=== PATIENT | female | born 1940 | race Caucasian/White ===

== ENCOUNTER 2022-10-19 19:28 | Inpatient (IN) | payer OTHER ==
[~2022-10-19 19:28] MED LIST changes: -METO50ER PO; -Prinivil10 MG PO; -Vitamin D1000 UNI1 PO; -XARELTO20 MG PO
[2022-10-19] MEDS ORDERED: Vitamin D1000 UNI1 PO (22:24)
[2022-10-19] MEDS ORDERED: METO50ER PO (22:25)
[2022-10-19] MEDS ORDERED: Prinivil10 MG PO (22:25)
[2022-10-19] MEDS ORDERED: XARELTO20 MG PO (22:26)
[2022-10-27] MEDS ORDERED: ALBU2.5V5 INH (11:26)
[2022-10-27] MEDS ORDERED: DIGOX125 MC1 PO (11:26)
[2022-10-27] MEDS ORDERED: ALBU8HFA2 INH (11:27)
[2022-10-27] MEDS ORDERED: FLUTICASONE-SA1 EAC2 INH (11:28)
[2022-10-27] MEDS ORDERED: Prednisone10 MG PO (11:29)
== END 2022-10-27 14:04 | disposition home health service (06) | DRG 871 ==
DX: A41.9 Sepsis, unspecified organism (principal); E43 Unspecified severe protein-calorie malnutrition; I21.A1 Myocardial infarction type 2; J96.01 Acute respiratory failure with hypoxia; J18.9 Pneumonia, unspecified organism; J44.1 Chronic obstructive pulmonary disease with (acute) exacerbation; N17.9 Acute kidney failure, unspecified; J44.0 Chronic obstructive pulmonary disease with (acute) lower respiratory infection; I48.20 Chronic atrial fibrillation, unspecified; Z68.1 Body mass index [BMI] 19.9 or less, adult; I44.7 Left bundle-branch block, unspecified; R73.9 Hyperglycemia, unspecified; N18.30 Chronic kidney disease, stage 3 unspecified; I12.9 Hypertensive chronic kidney disease with stage 1 through stage 4 chronic kidney disease, or unspecified chronic kidney disease; D63.1 Anemia in chronic kidney disease; I27.20 Pulmonary hypertension, unspecified; E78.5 Hyperlipidemia, unspecified; R65.20 Severe sepsis without septic shock; Z95.4 Presence of other heart-valve replacement; Z79.01 Long term (current) use of anticoagulants; Z79.82 Long term (current) use of aspirin; Z79.899 Other long term (current) drug therapy

== ENCOUNTER → 2022-10-19 | Outpatient (CLI) | payer OTHER ==
[~2022-10-19] MED LIST: ACET500 PO; ASPI81EC PO; DOCU100 PO; METO25ER PO; METO50ER PO; MOM PO; MULVITMINF PO; OXYC5 PO; Prinivil10 MG PO; SIMV20 PO; Vitamin D1000 UNI1 PO; XARELTO20 MG PO
[2022-10-19 18:40] LABS: BASOPHILS ABSOLUTE AUTO 0.05 K/mm3 (0.00-0.23); BASOPHILS PERCENT AUTO 1 % (0-2); EOSINOPHILS ABSOLUTE AUTO 0.07 K/mm3 (0.00-0.68); EOSINOPHILS PERCENT AUTO 1 % (0-6); Hematocrit 38.6 % (33.0-51.0); Hemoglobin 12.4 g/dL (11.5-16.0); IMMATURE GRAN ABSOLUTE AUTO 0.04 K/mm3 (0.00-0.10); IMMATURE GRAN PERCENT AUTO 0 % (0-1); LYMPHOCYTES ABSOLUTE AUTO 1.14 K/mm3 (0.84-5.20); LYMPHOCYTES PERCENT AUTO 11 % (21-46); MONOCYTES ABSOLUTE AUTO 0.61 K/mm3 (0.16-1.47); MONOCYTES PERCENT AUTO 6 % (4-13); Mean Corpuscular HGB 30.9 pg (26.0-34.0); Mean Corpuscular HGB Conc 32.1 g/dL (31.5-36.5); Mean Corpuscular Volume 96 fL (80-100); Mean Platelet Volume 10.9 fL (9.1-12.4); NEUTROPHILS ABSOLUTE AUTO 8.66 K/mm3 (1.96-9.15); NEUTROPHILS PERCENT AUTO 82 % (41-73); Platelet Count 211 K/mm3 (150-400); RDW Coefficient Variation 12.6 % (11.7-14.2); RDW Standard Deviation 44.6 fL (35.1-46.3); Red Blood Cell Count 4.01 M/mm3 (3.80-5.20); White Blood Cell Count 10.57 K/mm3 (4.00-11.30)
[2022-10-19 18:43] LABS: Bun/Creatinine Ratio 44.1 (12.0-20.0); Calcium, Blood 9.6 mg/dL (8.5-10.1); Creatinine, Blood 1.27 mg/dL (0.40-1.00); Potassium, Blood 4.6 mmol/L (3.5-5.5)
== END | disposition home or self-care (01) ==
LOC: LAB SHORT 18:34
PROVIDERS: Physician Assistant
DX: R09.02 Hypoxemia (principal)
CPT/HCPCS: 80048; 84484; 85025

== ENCOUNTER → 2022-11-09 | Outpatient (CLI) | payer OTHER ==
[~2022-11-09] MED LIST changes: +ALBU2.5V5 INH; +ALBU8HFA2 INH; +DIGOX125 MC1 PO; +FLUTICASONE-SA1 EAC2 INH; +METO100ER PO; +METO50ER PO; +Prednisone10 MG PO; +Prinivil10 MG PO; +Vitamin D1000 UNI1 PO; +XARELTO20 MG PO
[2022-11-09 17:39] LABS: Bun/Creatinine Ratio 26.6 (12.0-20.0); Calcium, Blood 8.9 mg/dL (8.5-10.1); Creatinine, Blood 0.79 mg/dL (0.40-1.00); Potassium, Blood 3.8 mmol/L (3.5-5.5)
== END | disposition home or self-care (01) ==
LOC: LAB SHORT 14:39 → LAB 14:39
PROVIDERS: Internal Medicine
DX: I10 Essential (primary) hypertension (principal)
CPT/HCPCS: 80048

== ENCOUNTER → 2022-11-22 | Outpatient (CLI) | payer OTHER ==
[2022-11-22 16:04] LABS: Bun/Creatinine Ratio 30.4 (12.0-20.0); Calcium, Blood 9.1 mg/dL (8.5-10.1); Creatinine, Blood 0.72 mg/dL (0.40-1.00); Potassium, Blood 3.5 mmol/L (3.5-5.5)
== END | disposition home or self-care (01) ==
LOC: LAB HH 14:23
PROVIDERS: Internal Medicine
DX: I10 Essential (primary) hypertension (principal)
CPT/HCPCS: 80048

== ENCOUNTER 2023-02-21 23:54 | Inpatient (IN) | payer OTHER ==
[~2023-02-21] VITALS: Ht 149.9 cm; Wt 42.3 kg
[2023-02-22 00:34] LABS: BASOPHILS ABSOLUTE AUTO 0.06 K/mm3 (0.00-0.23); BASOPHILS PERCENT AUTO 1 % (0-2); EOSINOPHILS ABSOLUTE AUTO 0.14 K/mm3 (0.00-0.68); EOSINOPHILS PERCENT AUTO 1 % (0-6); Hematocrit 30.4 % (33.0-51.0); Hemoglobin 9.2 g/dL (11.5-16.0); IMMATURE GRAN ABSOLUTE AUTO 0.03 K/mm3 (0.00-0.10); IMMATURE GRAN PERCENT AUTO 0 % (0-1); LYMPHOCYTES ABSOLUTE AUTO 1.26 K/mm3 (0.84-5.20); LYMPHOCYTES PERCENT AUTO 12 % (21-46); MONOCYTES ABSOLUTE AUTO 1.17 K/mm3 (0.16-1.47); MONOCYTES PERCENT AUTO 11 % (4-13); Mean Corpuscular HGB Conc 30.3 g/dL (31.5-36.5); Mean Corpuscular Volume 93 fL (80-100); Mean Platelet Volume 10.6 fL (9.1-12.4); NEUTROPHILS ABSOLUTE AUTO 7.68 K/mm3 (1.96-9.15); NEUTROPHILS PERCENT AUTO 74 % (41-73); Platelet Count 289 K/mm3 (150-400); RDW Coefficient Variation 15.9 % (11.7-14.2); RDW Standard Deviation 53.4 fL (35.1-46.3); Red Blood Cell Count 3.28 M/mm3 (3.80-5.20); White Blood Cell Count 10.34 K/mm3 (4.00-11.30)
[2023-02-22 01:05] LABS: Albumin, Blood 3.7 g/dL (3.4-5.0); Albumin/Globulin Ratio 1.2 (0.8-1.8); Calcium, Blood 8.9 mg/dL (8.5-10.1); Globulin, Blood 3.1 g/dL (2.2-4.0); Potassium, Blood 3.8 mmol/L (3.5-5.5); Total Protein, Blood 6.8 g/dL (6.4-8.2)
[2023-02-22 01:23] LABS: Influenza A, PCR NEGATIVE (NEGATIVE); Influenza B, PCR NEGATIVE (NEGATIVE); Resp Syncytial Virus, PCR NEGATIVE (NEGATIVE); SARS-Cov-2 (COVID-19) PCR, MMC NEGATIVE (NEGATIVE)
[2023-02-22] MEDS ORDERED: DIGOX125 MC1 PO (02:57)
[2023-02-22] MEDS ORDERED: FUROSEMIDE40 MG PO (02:58)
[2023-02-22] MEDS ORDERED: METO50ER PO (02:59)
[2023-02-22] MEDS ORDERED: KLOR-CON 1010 ME1 PO (03:00)
[2023-02-22] MEDS ORDERED: XARELTO10 M1 PO (03:01)
[2023-02-22 05:11] LABS: BASOPHILS ABSOLUTE AUTO 0.03 K/mm3 (0.00-0.23); BASOPHILS PERCENT AUTO 0 % (0-2); EOSINOPHILS ABSOLUTE AUTO 0.01 K/mm3 (0.00-0.68); EOSINOPHILS PERCENT AUTO 0 % (0-6); Hematocrit 28.7 % (33.0-51.0); Hemoglobin 8.7 g/dL (11.5-16.0); IMMATURE GRAN ABSOLUTE AUTO 0.03 K/mm3 (0.00-0.10); IMMATURE GRAN PERCENT AUTO 0 % (0-1); LYMPHOCYTES ABSOLUTE AUTO 0.19 K/mm3 (0.84-5.20); LYMPHOCYTES PERCENT AUTO 3 % (21-46); MONOCYTES ABSOLUTE AUTO 0.13 K/mm3 (0.16-1.47); MONOCYTES PERCENT AUTO 2 % (4-13); Mean Corpuscular HGB 28.2 pg (26.0-34.0); Mean Corpuscular HGB Conc 30.3 g/dL (31.5-36.5); Mean Corpuscular Volume 93 fL (80-100); Mean Platelet Volume 10.6 fL (9.1-12.4); NEUTROPHILS ABSOLUTE AUTO 7.07 K/mm3 (1.96-9.15); NEUTROPHILS PERCENT AUTO 95 % (41-73); Platelet Count 247 K/mm3 (150-400); RDW Coefficient Variation 15.9 % (11.7-14.2); RDW Standard Deviation 53.9 fL (35.1-46.3); Red Blood Cell Count 3.09 M/mm3 (3.80-5.20); White Blood Cell Count 7.46 K/mm3 (4.00-11.30)
[2023-02-22 05:37] LABS: Bun/Creatinine Ratio 54.8 (12.0-20.0); Calcium, Blood 8.7 mg/dL (8.5-10.1); Creatinine, Blood 0.93 mg/dL (0.40-1.00); Potassium, Blood 4.2 mmol/L (3.5-5.5)
--- NOTE | 2023-02-22 06:34 | NUR ---
SHIFT SUMMARY PT ADMITTED AT 0415- REPORT FROM ED RN- PT BROUGHT VIA GURNEY- PT ABLE TO TRANSFER TO BED- PT HAS INCREASED DYSPNEA WITH EXERTION- [place] [facility] [place]- PT TOLERATED WELL- DAUGHTER ASSISTED WITH ANSWERING ADMISSION ASSESSEMENT TO DECREASE PT'S EPISODES OF DYSPNEA- PT ABLE TO ANSWER QUESTIONS APPROPRIATELY -
--- NOTE | 2023-02-22 10:39 | NUR ---
Spiritual Care Visit. Pt. is awake and sitting up in bed when she welcomes my visit. Pt. is pleasant but is hard of hearing. Faciltate a short life review and listen with empathy. Considered matters of jani and yazdanism, and rapport is established. Pt. displayed evidence of a lightened spirit. Prayed with Pt. Pt. verbalized gratitude for the spiritual care visit.
--- NOTE | 2023-02-22 16:57 | NUR ---
DAYSHIFT SUMMARY No acute changes to patient status. Patient alert & oriented x3. Saturations stable on 2lpm, denies difficulty breathing. Ambulating well with FWW, no SOB with activity observed. ECHO done today, results pending. Vitals stable. IV ABX and Lasix given today. Will continue plan of care.
[2023-02-23 05:07] LABS: Hematocrit 27.3 % (33.0-51.0); Hemoglobin 8.2 g/dL (11.5-16.0); Mean Corpuscular Volume 93 fL (80-100); Mean Platelet Volume 10.4 fL (9.1-12.4); Platelet Count 234 K/mm3 (150-400); RDW Coefficient Variation 15.9 % (11.7-14.2); Red Blood Cell Count 2.93 M/mm3 (3.80-5.20)
[2023-02-23 06:02] LABS: Alanine Aminotransfer (ALT/SGP 24 U/L (12-78); Albumin, Blood 3.2 g/dL (3.4-5.0); Albumin/Globulin Ratio 1.1 (0.8-1.8); Alk Phos 65 U/L (50-136); Anion Gap 5 mmol/L (6-16); Aspartate Aminotrans (AST/SGOT 37 U/L (12-37); Bilirubin, Total 0.5 mg/dL (0.1-1.0); Blood Urea Nitrogen 59 mg/dL (8-24); Bun/Creatinine Ratio 57.8 (12.0-20.0); CO2, Blood 34 mmol/L (21-32); Calcium, Blood 8.8 mg/dL (8.5-10.1); Chloride, Blood 100 mmol/L (98-108); Creatinine, Blood 1.02 mg/dL (0.40-1.00); Globulin, Blood 2.8 g/dL (2.2-4.0); Glomerular Filtration Rate 54 (60-); Glucose, Blood 108 mg/dL (70-99); Sodium, Blood 139 mmol/L (136-145)
--- NOTE | 2023-02-23 16:46 | NUR ---
DAYSHIFT SUMMARY Vitals this morning was BP 91/60, Metoprolol & IV Lasix held per order parameters. Patient doing well, denies SOB. Oxygen saturations stable on 0.5L oxygen. Ambulating w/ FWW, staff supervision. No SOB with activity. Possible discharge tomorrow after Home O2 eval. IV Rocephin & Azithromycin given today. Vitals stable. Will continue plan of care.
[2023-02-24 04:47] LABS: BASOPHILS ABSOLUTE AUTO 0.05 K/mm3 (0.00-0.23); BASOPHILS PERCENT AUTO 1 % (0-2); EOSINOPHILS ABSOLUTE AUTO 0.11 K/mm3 (0.00-0.68); EOSINOPHILS PERCENT AUTO 1 % (0-6); Hemoglobin 8.8 g/dL (11.5-16.0); IMMATURE GRAN ABSOLUTE AUTO 0.05 K/mm3 (0.00-0.10); IMMATURE GRAN PERCENT AUTO 1 % (0-1); LYMPHOCYTES PERCENT AUTO 16 % (21-46); MONOCYTES ABSOLUTE AUTO 0.86 K/mm3 (0.16-1.47); MONOCYTES PERCENT AUTO 10 % (4-13); Mean Corpuscular HGB 28.3 pg (26.0-34.0); Mean Corpuscular HGB Conc 30.3 g/dL (31.5-36.5); Mean Corpuscular Volume 93 fL (80-100); Mean Platelet Volume 10.4 fL (9.1-12.4); NEUTROPHILS ABSOLUTE AUTO 6.06 K/mm3 (1.96-9.15); NEUTROPHILS PERCENT AUTO 71 % (41-73); Platelet Count 231 K/mm3 (150-400); RDW Coefficient Variation 15.8 % (11.7-14.2); RDW Standard Deviation 53.3 fL (35.1-46.3); Red Blood Cell Count 3.11 M/mm3 (3.80-5.20); White Blood Cell Count 8.53 K/mm3 (4.00-11.30)
[2023-02-24 06:03] LABS: Albumin, Blood 3.2 g/dL (3.4-5.0); Anion Gap 5 mmol/L (6-16); Blood Urea Nitrogen 71 mg/dL (8-24); Bun/Creatinine Ratio 74.2 (12.0-20.0); CO2, Blood 32 mmol/L (21-32); Calcium, Blood 8.6 mg/dL (8.5-10.1); Chloride, Blood 99 mmol/L (98-108); Creatinine, Blood 0.96 mg/dL (0.40-1.00); Ferritin, Serum 34 ng/mL (8-252); Glomerular Filtration Rate 58 (60-); Glucose, Blood 123 mg/dL (70-99); Iron Serum 27 ug/dL (50-170); Percent Saturation 6.8 % (15.0-50.0); Potassium, Blood 4.7 mmol/L (3.5-5.5); Sodium, Blood 136 mmol/L (136-145); Total Iron Binding Capacity 400 ug/dL (250-450)
--- NOTE | 2023-02-24 17:56 | NUR ---
DAYSHIFT SUMMARY Patient appears more SOB today, requiring 2L oxygen to maintain sats. Plan is to do thorecentesis tomorrow, holding Xarelto tonight. Infed 1000mg administred today. Vitals stable, BP WNL, Metoprolol & IV Lasix administred. No other concerns at this time. Will continue plan of care.
[2023-02-25 05:52] LABS: BASOPHILS ABSOLUTE AUTO 0.04 K/mm3 (0.00-0.23); BASOPHILS PERCENT AUTO 1 % (0-2); EOSINOPHILS ABSOLUTE AUTO 0.09 K/mm3 (0.00-0.68); EOSINOPHILS PERCENT AUTO 1 % (0-6); Hemoglobin 8.4 g/dL (11.5-16.0); IMMATURE GRAN ABSOLUTE AUTO 0.04 K/mm3 (0.00-0.10); IMMATURE GRAN PERCENT AUTO 1 % (0-1); LYMPHOCYTES PERCENT AUTO 17 % (21-46); MONOCYTES ABSOLUTE AUTO 0.97 K/mm3 (0.16-1.47); MONOCYTES PERCENT AUTO 13 % (4-13); Mean Corpuscular HGB 28.1 pg (26.0-34.0); Mean Corpuscular Volume 94 fL (80-100); Mean Platelet Volume 11.2 fL (9.1-12.4); NEUTROPHILS ABSOLUTE AUTO 5.34 K/mm3 (1.96-9.15); NEUTROPHILS PERCENT AUTO 69 % (41-73); Platelet Count 215 K/mm3 (150-400); RDW Coefficient Variation 15.4 % (11.7-14.2); Red Blood Cell Count 2.99 M/mm3 (3.80-5.20); White Blood Cell Count 7.78 K/mm3 (4.00-11.30)
[2023-02-25 06:17] LABS: Albumin, Blood 3.1 g/dL (3.4-5.0); Anion Gap 3 mmol/L (6-16); Blood Urea Nitrogen 56 mg/dL (8-24); Bun/Creatinine Ratio 76.4 (12.0-20.0); CO2, Blood 33 mmol/L (21-32); Calcium, Blood 8.6 mg/dL (8.5-10.1); Chloride, Blood 99 mmol/L (98-108); Creatinine, Blood 0.73 mg/dL (0.40-1.00); Glomerular Filtration Rate 81 (60-); Glucose, Blood 123 mg/dL (70-99); Lactate Dehydrogenase (Ld),Bld 482 U/L (100-240); Phosphorus, Blood 3.4 mg/dL (2.5-4.9); Sodium, Blood 135 mmol/L (136-145)
[2023-02-25 08:34] LABS: International Normalized Ratio 1.23; Prothrombin Time Results 12.7 Sec (9.7-11.5)
[2023-02-25 15:32] LABS: Automated BF RBC Count 0.004 M/mm3 (0-0); Automated BF WBC Count 0.375 K/mm3 (0-999)
[2023-02-25 15:35] LABS: Body Fluid WBC Count 375 /mm3 (0-999); RBC Count, Body Fluid 4000 /mm3 (0-0)
[2023-02-25 15:52] LABS: Albumin, Body Fluid 0.7 g/dL; Glucose, Body Fluid 131 mg/dL; Lactate Dehydrogenase, Body Fl 89 U/L
[2023-02-25 16:46] LABS: Total Cell Count, Body Fluid 100
[2023-02-25 16:47] LABS: Color, Body Fluid Yellow (None-Yellow)
--- NOTE | 2023-02-25 18:07 | NUR ---
SHIFT SUMMARY PT A&OX4 AND PLEASANT. PT WENT FOR THORACENTESIS IN AFTERNOON AND 500ML WERE DRAINED. NO C/O PAIN TODAY. CALLS APPROPRIATLY. NO ACUTE CHANGES. BED IN LOWEST POSITION AND CALL LIGHT IN REACH.
--- NOTE | 2023-02-26 11:44 | NUR ---
Pt sitting on edge of bed upon arrival. Pt wearing O2 via NC. Pt reports plan to D/C home with O2. Pt's son at bedside. Listened as Pt reports plan for D/C home today. Pt reports living at home with family and states adequate support. Pt denies pain, dyspnea, nausea, and anxiety. Engaged in gentle therapeutic advance care planning. Educated on the importance of planning for the future and having routine conversations with PCP. Brief gentle education on disease process. Discussed considering completing advanced directive. Pt and son report she has completed AD. Son will drop a copy to medical records at his convienance. Discussed considering completing POLST. Gentle education on life sustaining treatments including risks and implications to CPR/Intubation. Educated on each section to complete and educated on choices. Pt and son report plan to take home and discuss further with family. Pt and son express appreciation and report no other concerns at this time. Palliative Care will remain available
--- NOTE | 2023-02-26 16:08 | NUR ---
PT DISCHARGED HOME WITH HOME HEALTH AND OXYGEN. DISCHARGE INSTRUCTIONS AND EDCUATION MATERIAL EXPLAINED TO PT AND FAMILY. NO NEW QUESTIONS OR CONCERNS. IV AND TELE DC'd. PT HELPED TO DRESS. ALL BELONGINGS, INCLUDING PERSONAL WALKER, SENT HOME WITH PT. PT TAKEN BY WHEELCHAIR TO WAITING VEHICLE.
== END 2023-02-26 14:06 | disposition home health service (06) | DRG 291 ==
LOC: ER 23:54 → MEDS 02-22 03:43
PROVIDERS: Emergency Medicine; Family Medicine; Internal Medicine; ADMIT Internal Medicine
PROC: 0W993ZX Drainage of Right Pleural Cavity, Percutaneous Approach, Diagnostic (ICD-10-PCS; principal; 2023-02-25)
DX: I13.0 Hypertensive heart and chronic kidney disease with heart failure and stage 1 through stage 4 chronic kidney disease, or unspecified chronic kidney disease (principal); I50.21 Acute systolic (congestive) heart failure; J96.01 Acute respiratory failure with hypoxia; I24.8 Other forms of acute ischemic heart disease; I48.20 Chronic atrial fibrillation, unspecified; J91.8 Pleural effusion in other conditions classified elsewhere; Z20.822 Contact with and (suspected) exposure to COVID-19; Z28.21 Immunization not carried out because of patient refusal; E78.5 Hyperlipidemia, unspecified; J44.9 Chronic obstructive pulmonary disease, unspecified; I08.1 Rheumatic disorders of both mitral and tricuspid valves; I27.20 Pulmonary hypertension, unspecified; D63.1 Anemia in chronic kidney disease; N18.30 Chronic kidney disease, stage 3 unspecified; D50.9 Iron deficiency anemia, unspecified; H91.90 Unspecified hearing loss, unspecified ear; Z95.2 Presence of prosthetic heart valve; Z98.49 Cataract extraction status, unspecified eye; I25.2 Old myocardial infarction; Z87.01 Personal history of pneumonia (recurrent); Z87.891 Personal history of nicotine dependence; Z79.01 Long term (current) use of anticoagulants; Z79.899 Other long term (current) drug therapy
CPT/HCPCS: 0241U; 32555; 36415; 71045; 80048; 80053; 80069; 80162; 82042; 82607; 82728; 82746; 82945; 83540; 83550; 83615; 83880; 84145; 84155; 84157; 84484; 85025; 85027; 85610; 85730; 87070; 87205; 88108; 88305; 89051; 93005; 93010; 93308; 94640; 94644; 94664; 94760; 96365; 96367; 96375; 99285-25; A9270; J0456; J0696; J1750; J1940; J2930; J7050

== ENCOUNTER → 2023-09-10 | Outpatient (CLI) | payer OTHER ==
[~2023-09-10] MED LIST changes: +FUROSEMIDE40 MG PO; +KLOR-CON 1010 ME1 PO; +XARELTO10 M1 PO
[2023-09-10 16:33] LABS: BASOPHILS ABSOLUTE AUTO 0.03 K/mm3 (0.00-0.23); BASOPHILS PERCENT AUTO 0 % (0-2); EOSINOPHILS ABSOLUTE AUTO 0.09 K/mm3 (0.00-0.68); EOSINOPHILS PERCENT AUTO 1 % (0-6); Hematocrit 31.3 % (33.0-51.0); Hemoglobin 9.8 g/dL (11.5-16.0); IMMATURE GRAN ABSOLUTE AUTO 0.03 K/mm3 (0.00-0.10); IMMATURE GRAN PERCENT AUTO 0 % (0-1); LYMPHOCYTES ABSOLUTE AUTO 1.07 K/mm3 (0.84-5.20); LYMPHOCYTES PERCENT AUTO 14 % (21-46); MONOCYTES ABSOLUTE AUTO 0.61 K/mm3 (0.16-1.47); MONOCYTES PERCENT AUTO 8 % (4-13); Mean Corpuscular HGB Conc 31.3 g/dL (31.5-36.5); Mean Corpuscular Volume 102 fL (80-100); Mean Platelet Volume 10.4 fL (9.1-12.4); NEUTROPHILS ABSOLUTE AUTO 5.67 K/mm3 (1.96-9.15); NEUTROPHILS PERCENT AUTO 76 % (41-73); Platelet Count 272 K/mm3 (150-400); RDW Coefficient Variation 15.4 % (11.7-14.2); RDW Standard Deviation 57.1 fL (35.1-46.3); Red Blood Cell Count 3.06 M/mm3 (3.80-5.20)
[2023-09-10 16:44] LABS: Albumin, Blood 4.4 g/dL (3.4-5.0); Albumin/Globulin Ratio 1.3 (0.8-1.8); Bilirubin, Total 1.3 mg/dL (0.1-1.0); Bun/Creatinine Ratio 37.6 (12.0-20.0); Calcium, Blood 10.2 mg/dL (8.5-10.1); Creatinine, Blood 1.09 mg/dL (0.40-1.00); Globulin, Blood 3.4 g/dL (2.2-4.0); Potassium, Blood 3.9 mmol/L (3.5-5.5); Total Protein, Blood 7.8 g/dL (6.4-8.2)
== END ==
LOC: LAB 16:28 → LAB SHORT 16:28
PROVIDERS: Physician Assistant
DX: R06.00 Dyspnea, unspecified (principal)
CPT/HCPCS: 80053; 83880; 84484; 85025

== ENCOUNTER 2023-09-11 18:38 | Emergency (ER) | payer OTHER ==
[~2023-09-11] VITALS: Ht 149.9 cm; Wt 34.5 kg
[2023-09-11 19:12] LABS: BASOPHILS ABSOLUTE AUTO 0.05 K/mm3 (0.00-0.23); BASOPHILS PERCENT AUTO 1 % (0-2); EOSINOPHILS ABSOLUTE AUTO 0.16 K/mm3 (0.00-0.68); EOSINOPHILS PERCENT AUTO 2 % (0-6); Hematocrit 33.3 % (33.0-51.0); Hemoglobin 10.3 g/dL (11.5-16.0); IMMATURE GRAN ABSOLUTE AUTO 0.03 K/mm3 (0.00-0.10); IMMATURE GRAN PERCENT AUTO 0 % (0-1); LYMPHOCYTES ABSOLUTE AUTO 1.48 K/mm3 (0.84-5.20); LYMPHOCYTES PERCENT AUTO 20 % (21-46); MONOCYTES ABSOLUTE AUTO 0.76 K/mm3 (0.16-1.47); MONOCYTES PERCENT AUTO 10 % (4-13); Mean Corpuscular HGB 31.5 pg (26.0-34.0); Mean Corpuscular HGB Conc 30.9 g/dL (31.5-36.5); Mean Corpuscular Volume 102 fL (80-100); Mean Platelet Volume 10.2 fL (9.1-12.4); NEUTROPHILS ABSOLUTE AUTO 5.07 K/mm3 (1.96-9.15); NEUTROPHILS PERCENT AUTO 67 % (41-73); Platelet Count 280 K/mm3 (150-400); RDW Coefficient Variation 15.1 % (11.7-14.2); RDW Standard Deviation 56.8 fL (35.1-46.3); Red Blood Cell Count 3.27 M/mm3 (3.80-5.20); White Blood Cell Count 7.55 K/mm3 (4.00-11.30)
[2023-09-11 19:37] LABS: Albumin, Blood 4.3 g/dL (3.4-5.0); Albumin/Globulin Ratio 1.1 (0.8-1.8); Bilirubin, Total 1.2 mg/dL (0.1-1.0); Bun/Creatinine Ratio 34.9 (12.0-20.0); Calcium, Blood 9.9 mg/dL (8.5-10.1); Creatinine, Blood 1.06 mg/dL (0.40-1.00); Globulin, Blood 3.8 g/dL (2.2-4.0); Potassium, Blood 3.8 mmol/L (3.5-5.5); Total Protein, Blood 8.1 g/dL (6.4-8.2)
[2023-09-11 19:43] LABS: Source, Urine Clean Catch
[2023-09-11 19:48] LABS: Influenza A, PCR NEGATIVE (NEGATIVE); Influenza B, PCR NEGATIVE (NEGATIVE); Resp Syncytial Virus, PCR NEGATIVE (NEGATIVE); SARS-Cov-2 (COVID-19) PCR, MMC NEGATIVE (NEGATIVE)
[2023-09-11 20:04] LABS: Appearance, Urine Clear (Clear); Bilirubin, Urine Neg (Neg); Blood, Urine 1+ (Neg); Color, Urine Yellow (P-Yellow); Glucose Qualitative, Urine Neg (Neg); Ketones, Urine Neg (Neg); Leukocyte Esterase, Urine Neg (Neg); Nitrite, Urine Neg (Neg); Protein, Urine Neg (Neg); Urobilinogen, Urine NORM (Normal)
[2023-09-11 20:25] LABS: Bicarbonate Venous 36.4 mmol/L (24.0-30.0); PCO2 Venous 47.1 mmHg (38-42); pH Blood Venous 7.51 (7.34-7.37)
[2023-09-11 20:26] LABS: Bacteria Few /hpf; Red Blood Cells, Urine 0-2 /hpf (0-2); Squamous Epithelial Cells Few /hpf (Few); White Blood Cells, Urine 0-2 /hpf (0-5)
[2023-09-11 21:08] VITALS: BP 108/72
== END 2023-09-11 21:29 | disposition home or self-care (01) ==
LOC: ER 18:38
PROVIDERS: Emergency Medicine; Student in an Organized Health Care Education/Training Program
DX: R06.02 Shortness of breath (principal); R09.02 Hypoxemia; I25.9 Chronic ischemic heart disease, unspecified; I10 Essential (primary) hypertension; J44.9 Chronic obstructive pulmonary disease, unspecified; I48.91 Unspecified atrial fibrillation; I25.2 Old myocardial infarction; Z20.822 Contact with and (suspected) exposure to COVID-19; Z87.891 Personal history of nicotine dependence; Z99.81 Dependence on supplemental oxygen; Z79.01 Long term (current) use of anticoagulants; Z79.899 Other long term (current) drug therapy
CPT/HCPCS: 0241U; 71045; 80053; 81001; 82803; 83880; 84484; 85025; 93005; 93010; 99285-25

== ENCOUNTER 2024-06-21 18:18 | Inpatient (IN) | payer OTHER ==
[~2024-06-21] VITALS: Ht 149.9 cm; Wt 36.7 kg
[2024-06-21 18:54] LABS: BASOPHILS ABSOLUTE AUTO 0.09 K/mm3 (0.00-0.23); BASOPHILS PERCENT AUTO 0 % (0-2); EOSINOPHILS ABSOLUTE AUTO 0.01 K/mm3 (0.00-0.68); EOSINOPHILS PERCENT AUTO 0 % (0-6); Hematocrit 24.6 % (33.0-51.0); Hemoglobin 7.8 g/dL (11.5-16.0); IMMATURE GRAN ABSOLUTE AUTO 0.72 K/mm3 (0.00-0.10); IMMATURE GRAN PERCENT AUTO 2 % (0-1); LYMPHOCYTES ABSOLUTE AUTO 1.16 K/mm3 (0.84-5.20); LYMPHOCYTES PERCENT AUTO 4 % (21-46); MONOCYTES ABSOLUTE AUTO 1.41 K/mm3 (0.16-1.47); MONOCYTES PERCENT AUTO 5 % (4-13); Mean Corpuscular HGB 31.7 pg (26.0-34.0); Mean Corpuscular HGB Conc 31.7 g/dL (31.5-36.5); Mean Corpuscular Volume 100 fL (80-100); Mean Platelet Volume 9.8 fL (9.1-12.4); NEUTROPHILS ABSOLUTE AUTO 26.59 K/mm3 (1.96-9.15); NEUTROPHILS PERCENT AUTO 89 % (41-73); NRBC ABSOLUTE 0.03 K/mm3 (0.00-0.02); NRBC Auto 0.1 /100 WBC (0.0-0.2); Platelet Count 510 K/mm3 (150-400); RDW Coefficient Variation 21.6 % (11.7-14.2); RDW Standard Deviation 64.6 fL (35.1-46.3); Red Blood Cell Count 2.46 M/mm3 (3.80-5.20); White Blood Cell Count 29.98 K/mm3 (4.00-11.30)
[2024-06-21] MEDS ORDERED: FERSU300 PO (19:16)
[2024-06-21 19:49] LABS: Influenza A, PCR NEGATIVE (NEGATIVE); Influenza B, PCR NEGATIVE (NEGATIVE); Resp Syncytial Virus, PCR NEGATIVE (NEGATIVE); SARS-Cov-2 (COVID-19) PCR, MMC NEGATIVE (NEGATIVE)
[2024-06-21] MEDS ORDERED: Furosemide 10 MG/ML 4ML Vial IV ONE (20:00)
[2024-06-21] MEDS ORDERED: CefTRIAXone Sodium 1,000 MG in NS 100 ML IV ONE (20:00)
[2024-06-21] MEDS ORDERED: Azithromycin 500 MG in NS 250 ML IV ONE (20:00)
[2024-06-21] MEDS ORDERED: Ipratropium/Albuterol SulF 2.5-0.5MG/3 ML Amp INH ONE (20:50)
[2024-06-21 20:53] LABS: Albumin, Blood 3.3 g/dL (3.4-5.0); Albumin/Globulin Ratio 0.9 (0.8-1.8); Calcium, Blood 9.2 mg/dL (8.5-10.1); Creatinine, Blood 1.25 mg/dL (0.40-1.00); Globulin, Blood 3.5 g/dL (2.2-4.0); Potassium, Blood 4.7 mmol/L (3.5-5.5); Total Protein, Blood 6.8 g/dL (6.4-8.2)
[2024-06-21] MEDS ORDERED: Ipratropium/Albuterol SulF 2.5-0.5MG/3 ML Amp INH SCH (21:30)
[2024-06-21] MEDS ORDERED: LORazepam 2 MG/ML 1ML Injection IV PRN (21:55)
[2024-06-21] MEDS ORDERED: MethylPREDNISolone Sod Succ 125 MG Vial IV SCH (22:00)
--- NOTE | 2024-06-21 22:00 | NUR ---
ASSUMPTION OF CARE PT TRANSFERRED TO PCU AT 220, PT TRANSITIONED TO PCU BED VIA SLIDER SHEET. PT ON BIPAP ON ARRIVAL TO UNIT, PT STATED THAT SHE DID NOT WANT TO WEAR IT ANY LONGER AND WANTED A BREAK. PT SWITCHED TO NC AT 4LPM, OXYGE NSATUATION >95%. PT ABLE TO STATE NAME, AND PLACE, UNSURE OF YEAR. PT MOVES EXTREMITIES EQUALLY BILATERALLY. HR 70-80'S AFIB, MAP >65. PT DENIES CP OR PRESSURE. PT ALSO DENIES SOB OR DIFFICULTY BREATHING. PT COUGHING UP YELLOW THICK SECRETIONS. ABDOMEN SOFT, BOWEL TONES ACTIVE IN ALL FOUR QUADRANTS. PT DENIES N/V. PT AMBULATES WITH ASSISTANCE TO BEDSIDE COMMODE TO VOID, ATTENDS IN PLACE. PIV IN PLACE TO RAC AND LAC. BED IN LOWEST POSITION, CALL LIGHT WITHIN REACH, PT SON AND DAUGHTER AT THE BEDSIDE. CARE CONTINUES.
[2024-06-21 23:15] VITALS: BP 94/54
[2024-06-21 23:30] VITALS: BP 110/62
[2024-06-21 23:45] VITALS: BP 102/59
[2024-06-22] VITALS (22 sets, daily range): BP systolic 98–129; BP diastolic 44–80
[2024-06-22] MEDS ORDERED: Ipratropium/Albuterol SulF 2.5-0.5MG/3 ML Amp INH SCH (00:28)
[2024-06-22 04:17] LABS: BASOPHILS ABSOLUTE AUTO 0.09 K/mm3 (0.00-0.23); BASOPHILS PERCENT AUTO 0 % (0-2); EOSINOPHILS PERCENT AUTO 0 % (0-6); Hematocrit 24.4 % (33.0-51.0); Hemoglobin 7.7 g/dL (11.5-16.0); IMMATURE GRAN ABSOLUTE AUTO 0.84 K/mm3 (0.00-0.10); IMMATURE GRAN PERCENT AUTO 3 % (0-1); LYMPHOCYTES ABSOLUTE AUTO 0.39 K/mm3 (0.84-5.20); LYMPHOCYTES PERCENT AUTO 1 % (21-46); MONOCYTES ABSOLUTE AUTO 0.34 K/mm3 (0.16-1.47); MONOCYTES PERCENT AUTO 1 % (4-13); Mean Corpuscular HGB Conc 31.6 g/dL (31.5-36.5); Mean Corpuscular Volume 101 fL (80-100); Mean Platelet Volume 11.1 fL (9.1-12.4); NEUTROPHILS ABSOLUTE AUTO 30.92 K/mm3 (1.96-9.15); NEUTROPHILS PERCENT AUTO 95 % (41-73); NRBC ABSOLUTE 0.02 K/mm3 (0.00-0.02); NRBC Auto 0.1 /100 WBC (0.0-0.2); Platelet Count 488 K/mm3 (150-400); RDW Coefficient Variation 21.2 % (11.7-14.2); RDW Standard Deviation 65.1 fL (35.1-46.3); Red Blood Cell Count 2.41 M/mm3 (3.80-5.20); White Blood Cell Count 32.58 K/mm3 (4.00-11.30)
[2024-06-22 04:48] LABS: Albumin, Blood 3.5 g/dL (3.4-5.0); Bilirubin, Total 1.7 mg/dL (0.1-1.0); Bun/Creatinine Ratio 65.9 (12.0-20.0); Calcium, Blood 8.9 mg/dL (8.5-10.1); Creatinine, Blood 1.26 mg/dL (0.40-1.00); Globulin, Blood 3.5 g/dL (2.2-4.0); Potassium, Blood 4.5 mmol/L (3.5-5.5)
--- NOTE | 2024-06-22 05:03 | NUR ---
SHIFT SUMMARY NO ACUTE CHANGES THIS SHIFT. PT CONTINUES TO REST IN BED, SLEEPING BUT AROUSABLE. PT ABLE TO STATE NAME, AND PLACE, UNSURE OF YEAR, PT CONFUSED AT TIMES. PT MOVES ALL EXTREMITIES EQUALLY BILATERALLY. HR 60-70'S AFIB, MAP >65. PT ON 4LPM VIA NC, OXYGEN SATURATION >95%. ABDOMEN SOFT, BOWEL TONES ACTIVE IN ALL FOUR QUADRANTS. PT AMBULATES WITH ASSISTANCE TO BEDSIDE COMMODE TO VOID. PIV IN PLACE TO RAC AND LAC SL. BED IN LOWEST POSITION, CALL LIGHT WITHIN REACH, CARE CONTINUES.
[2024-06-22] MEDS ORDERED: Ferrous Sulfate 325 MG Tab PO SCH (09:00)
[2024-06-22] MEDS ORDERED: Rivaroxaban 10 MG Tab PO SCH (09:00)
[2024-06-22] MEDS ORDERED: GuaiFENesin 600 MG TabCR PO SCH (09:00)
[2024-06-22] MEDS ORDERED: Furosemide 10 MG/ML 4ML Vial IV SCH (09:00)
[2024-06-22] MEDS ORDERED: Digoxin 0.125 MG Tab PO SCH (09:00)
[2024-06-22] MEDS ORDERED: Metoprolol Succinate 50 MG TABCR PO SCH (09:00)
[2024-06-22] MEDS ORDERED: DEXTROMETHORPHAN/BENZOCAINE 1 EACH LOZENGE MT PRN (09:40)
[2024-06-22] MEDS ORDERED: Benzonatate 100 MG Cap PO PRN (09:40)
--- NOTE | 2024-06-22 12:55 | NUR ---
SHIFT SUMMARY PLEASANT PT, A &OX4. SP02>90% ON 3L NC. PT STATES 2L BASELINE. TELEMETRY READS AFIB, HR MOSTLY 70;S, HYPOTENSION NOTED THIS AM, SEE VITALS. LASIX AND METOPROLOL HELD. PT 1P ASSIST TO BSC. PT UP IN RECLINER FOR LUNCH. Q2H REPOSITIONING. DAUGHTER AND SON IN ROOM. PALLIATIVE CARE IN ROOM TO DISCUSS HOSPICE, SEE NOTES. PT RESTING IN ROOM W/ CALL NAHUN RAYMOND. WILL GIVE REPORT TO ONCOMING RN.
--- NOTE | 2024-06-22 15:45 | NUR ---
Spiritual care visit conducted. Patient is lying in bed and alert. Patient's son, Saeed is bedside. Patient is confused about where she thinks she knows me from and gives a long narative (None of the which is true). Saeed explains alittle about the patient and her medical issues. He shares about her Baptism jani and about how much it means to her for comfort and reassurance. Patient tells more stories about this car rider's parents (also false). I remind patient of her safety and about God's love and faithfulness. I also normalize her experience and provided theological insights, empathica listening and prayer. Patient and Saeed responded well and showed signs of being encouraged in her their jani.
--- NOTE | 2024-06-22 16:33 | NUR ---
The patient lives with her daughter, is [place], pleasant and cooperative. She was brought into the ED after daughter states she became severly SOB. Found to have pneumonia, CHF and COPD exacerbation, ARF, and sepsis. She was given antibiotics and admitted to the hospital. Pt's daughter states she did not want to go to the hospital, but finally agreed to to come. Daughter Naomie is a Registered Nurse as well, and spoke to her mom about hospice care. Upon my arrival, the patient stated she is "ready to go home, and doesn't want to return to the hospital. We discussed the hospice philosophy, and the patient states she is definitely ready to return home with hospice as soon as possible.
--- NOTE | 2024-06-22 17:24 | NUR ---
SHIFT SUMMARY THIS RN ASSUMED CARE AT APPROX. 1300. PT IS [place] BUT IS A&O X 4. HR STABLE AND BP IS SOFT W/ SBP IN 90-106, SPO2 IS MAINTAINED >95% VIA 4.5L NC. SHE HAS DENIED FEELINGS OF CHEST PAIN/PRESSURE WELL FEELING SOB. HER SON AND DAUGHTER HAVE BEEN AT BEDSIDE DURING SHIFT. SHE APPEARS CACHECTIC BUT DID HAVE PO INTAKE, PLEASE SEE I&O'S FOR PO INTAKE. ATTENDS ARE IN PLACE AND ARE D/C/I. MEPILEX DRESSING PLACED OVER COCCYX BY THIS RN TO PREVENT SKIN BREAKDOWN. CALL LIGHT IS W/IN REACH.
[2024-06-22] MEDS ORDERED: NS 250 ML IV PRN (20:25)
[2024-06-22] MEDS ORDERED: Azithromycin 500 MG in NS 250 ML IV SCH (21:00)
[2024-06-22] MEDS ORDERED: CefTRIAXone Sodium 1,000 MG in NS 100 ML IV SCH (21:00)
[2024-06-23 03:41] VITALS: BP 101/50
[2024-06-23 04:05] LABS: BASOPHILS ABSOLUTE AUTO 0.04 K/mm3 (0.00-0.23); BASOPHILS PERCENT AUTO 0 % (0-2); EOSINOPHILS ABSOLUTE AUTO 0.03 K/mm3 (0.00-0.68); EOSINOPHILS PERCENT AUTO 0 % (0-6); Hemoglobin 6.4 g/dL (11.5-16.0); IMMATURE GRAN ABSOLUTE AUTO 0.37 K/mm3 (0.00-0.10); IMMATURE GRAN PERCENT AUTO 2 % (0-1); LYMPHOCYTES ABSOLUTE AUTO 0.55 K/mm3 (0.84-5.20); LYMPHOCYTES PERCENT AUTO 2 % (21-46); MONOCYTES ABSOLUTE AUTO 0.33 K/mm3 (0.16-1.47); MONOCYTES PERCENT AUTO 1 % (4-13); Mean Corpuscular Volume 100 fL (80-100); NEUTROPHILS ABSOLUTE AUTO 23.23 K/mm3 (1.96-9.15); NEUTROPHILS PERCENT AUTO 95 % (41-73); NRBC ABSOLUTE 0.03 K/mm3 (0.00-0.02); NRBC Auto 0.1 /100 WBC (0.0-0.2); Platelet Count 388 K/mm3 (150-400); RDW Coefficient Variation 22.4 % (11.7-14.2); RDW Standard Deviation 66.3 fL (35.1-46.3); White Blood Cell Count 24.55 K/mm3 (4.00-11.30)
[2024-06-23 04:20] LABS: Bun/Creatinine Ratio 67.2 (12.0-20.0); Calcium, Blood 8.6 mg/dL (8.5-10.1); Creatinine, Blood 1.31 mg/dL (0.40-1.00); Potassium, Blood 4.4 mmol/L (3.5-5.5)
--- NOTE | 2024-06-23 05:45 | NUR ---
1915 Assumed care of pt, bedside report completed. Shift plan of care reviewed with pt and son and daughter at bedside. Daughter is acute care RN with an advanced degree of health care literacy. Plan per family is to DC pt to home tomorrow with hospice in place. Pt engaged in discussion though quite forgetful and defering to daughter. Pt with uneventful shift. Pt frequently awakens confused and has needed frequent reorientation and redirection, is easily reassured and redirected throughout this shift. Pt does not enjoy wearing BiPap mask, asking to remaining on O2 via NC as much as possible. Has not needed BiPap this shift. AM labs show H/H 6.5. Palliative care involved, intent to DC home with hospice today. Pt is asymptomatic and VSS at this time. After discussion with before and after school daycare worker, plan to report results to dayshift RN and continue to monitor for symptoms. Please see full assessment for additional details. No further complaints or concerns at this time, will continue to monitor.
[2024-06-23 07:35] VITALS: BP 117/59
--- NOTE | 2024-06-23 10:54 | NUR ---
AM NOTES; PT DISCHARGING TO HOME THIS AFTERNOON WITH HOSPICE. DAUGHTER SHANTEL AT THE BEDSIDE THIS MORNING AND WAS GIVEN UPDATE REGARDING PT'S STATUS AND ALSO ABOUT DISCHARGE PLANNING. DAUGHTER REPORTED EQUIPMENTS ARE BEIGN DELIVERED TO HOME AT 12NN TODAY AND IS NOT AVAILABLE TIL 3PM TO DIRECTOR FUNDS DEVELOPMENT PT. MD AND RECEIVABLE MANAGER MADE AWARE. ALSO VERIFIED WITH MD HER XARELTO DOSE THIS MORNING DUE TO LOW HGB AT 6.4, PROVIDER TO DC XARELTO UPON DISCHARGE. NO OTHER ISSUES ENCOUNTERED AT THIS TIME, PT HAS BEEN PLEASAT AND COOPERATIVE INTERMITTENT CONFUSION MOSTLY UPON WAKING UP. CALL LIGHTS IN REACH WILL CONTINUE TO MONITOR
[2024-06-23] MEDS ORDERED: Tessalon200 MG PO (12:07)
[2024-06-23 12:12] VITALS: BP 127/75
[2024-06-23] MEDS ORDERED: BENMENLOZ MT (12:20)
[2024-06-23] MEDS ORDERED: CEFP200 PO (12:22)
[2024-06-23] MEDS ORDERED: AZIT250 PO (12:22)
[2024-06-23] MEDS ORDERED: MUCINEX600 MG PO (12:22)
[2024-06-23] MEDS ORDERED: LORA.5 PO (12:23)
[2024-06-23] MEDS ORDERED: DEXA2 PO (12:23)
--- NOTE | 2024-06-23 15:22 | NUR ---
PT DISCHARGED TO HOME WITH HOME HOSPICE, DAUGHTER ABLE TO PROVIDE TRANSPORTATION WITH THE PT, DISCLOSED ALL NEW MEDICATION AND DISCHARGE INSTRUCTIONS, SENT A HARD SCRIPT FOR ATIVAN WELL. ALL BELONGINGS SENT WITH THE PT. ACCOMPANIED VIA WHEELCHAIR FOR TRANSPORT
== END 2024-06-23 14:43 | disposition hospice, home (50) | DRG 871 ==
LOC: ER 18:18 → PCU 21:48
PROVIDERS: Emergency Medicine; Internal Medicine; Student in an Organized Health Care Education/Training Program; ADMIT Internal Medicine
DX: A41.9 Sepsis, unspecified organism (principal); I50.33 Acute on chronic diastolic (congestive) heart failure; J18.9 Pneumonia, unspecified organism; J96.01 Acute respiratory failure with hypoxia; J44.0 Chronic obstructive pulmonary disease with (acute) lower respiratory infection; J44.1 Chronic obstructive pulmonary disease with (acute) exacerbation; I48.0 Paroxysmal atrial fibrillation; Z66 Do not resuscitate; Z51.5 Encounter for palliative care; I27.20 Pulmonary hypertension, unspecified; D64.9 Anemia, unspecified; Z87.891 Personal history of nicotine dependence; E78.5 Hyperlipidemia, unspecified; I10 Essential (primary) hypertension; H91.90 Unspecified hearing loss, unspecified ear; Z79.01 Long term (current) use of anticoagulants; Z79.899 Other long term (current) drug therapy; I25.2 Old myocardial infarction
CPT/HCPCS: 0241U; 36415; 71046; 80048; 80053; 83605; 84145; 84484; 85025; 93005; 93010; 94640; 94660; 94664; 94762; 96365; 96367; 96375; 99285-25; A9270; J0456; J0696; J1940; J2919; J7050